=== PATIENT | female | born 1975 | race Caucasian/White ===

== ENCOUNTER 2016-12-22 09:25 | Emergency (ER) | payer OTHER ==
[~2016-12-22] VITALS: Ht 165.1 cm; Wt 100.0 kg
[~2016-12-22 09:25] MED LIST: BCPILLS PO; CITA40TA12 PO; NAPR500T3 PO; OMEP20CA9 PO; SYN50 PO
[2016-12-22 09:37] VITALS: TEMP 37.2; Ht 165.1 cm; Wt 100.0 kg
[2016-12-22] MEDS ORDERED: KETOROLAC TROMETHAMINE 30 MG/ML VIAL IV STA (10:09)
[2016-12-22] MEDS ORDERED: SODIUM CHLORIDE 0.9% 1000ML 1,000 ML IV STA ×2 (10:09→11:49)
[2016-12-22] MEDS ORDERED: ONDANSETRON INJ 2 MG/ML 2 ML VIAL IV STA (10:09)
[2016-12-22 10:19] LABS: COMPLETE YES; EOS % 2.8 %; HEMATOCRIT 41.1 % (37-47); IG% 0.4 %; LYMPH % 19.7 %; LYMPH ABS # 1.07 K/uL (1.2-3.4); MEAN CELL VOLUME 87.8 fL (80-100); MEAN CORPUSCULAR HEMOGLOBIN 31.8 pg (25-34); MEAN CORPUSCULAR HGB CONC 36.3 g/dl (32-36); MEAN PLATELET VOLUME 9.7 fL (7.4-10.4); MONO % 11.4 %; NEUT % 65.7 %; PLATELET COUNT 209 K/uL (130-400); RED BLOOD COUNT 4.68 M/uL (4.2-5.4); WHITE BLOOD COUNT 5.43 K/uL (4.8-10.8)
[2016-12-22 10:27] LABS: BUN/CREATININE RATIO 13.9 (10-20); CALCIUM 8.5 mg/dl (8.5-10.1); CREATININE 0.85 mg/dl (0.60-1.20); MAGNESIUM 1.9 mg/dl (1.8-2.4); POTASSIUM 3.5 mmol/L (3.5-5.1)
[2016-12-22 10:31] LABS: PREG INTERNAL NEGATIVE QC NEG CLEAR BACKGROUND; PREG INTERNAL POSITIVE QC POS CONTROL LINE
[2016-12-22] MEDS ORDERED: CHOL1000 PO (10:33)
[2016-12-22] MEDS ORDERED: ACET-1311 PO (10:33)
[2016-12-22] MEDS ORDERED: EFF75 PO (10:33)
[2016-12-22 10:40] LABS: URINE APPEARANCE CLOUDY (CLEAR); URINE COLOR DK YELLOW; URINE EPITHELIAL CELL AUTO >30 /lpf (0-5); URINE NITRITE NEG (NEG); URINE SPECIFIC GRAVITY 1.041 (1.000-1.030); UROBILINOGEN NEG (NEG); ZZUR CULT IF INDIC CLEAN CATCH YES
[2016-12-22 10:49] LABS: MANUAL MICROSCOPIC REQUIRED? NO; REVIEW REQ? NO; URINE BILIRUBIN 1+ (NEG)
--- NOTE | 2016-12-22 11:10 | DIAGNOSTIC IMAGING REPORT ---
ABDOMEN 2VIEW W/PA CHEST RTN CLINICAL HISTORY: Fever, chills, abdominal discomfort COMPARISON STUDY: 08/05/2015 FINDINGS: The erect chest reveals no free air. There is mild soft tissue prominence the right paratracheal/azygous region. There is no focal pulmonary consolidation. Erect and supine views the abdomen reveal no abnormally dilated loops of large or small bowel. There are no transition zones indicate bowel obstruction. There are multiple pelvic basin calcifications, which in the absence of renal colic, likely represent phleboliths. There are surgical clips within the right upper quadrant consistent with a prior cholecystectomy. IMPRESSION: No evidence of bowel obstruction. No evidence of free air. Electronically signed by: Adolfo Izquierdo M.D. 12/22/2016 11:09 AM Dictated Date/Time: 12/22/2016 11:07 AM
--- NOTE | 2016-12-22 14:32 | EMERGENCY ROOM VISIT NOTE ---
History First contact with patient: 09:50 Chief Complaint: FLU LIKE SX Stated Complaint: DAY 12 OF FLU, NAUESA, THROWING UP,COUGH History of Present Illness The patient is a 41 year old female who presents to the Emergency Room via private vehicle with complaints of "date 12 flu, nausea, throwing up, cough". The patient states that she went to [place] for vacation a few weeks ago at the [facility], and about 10 days ago no vomiting, fever and diarrhea. She states that she went to see her family doctor, which is at the [facility], who tested her for the flu and she was found to be positive. She was prescribed Tamiflu of which she had taken for 5 days. She notes that she finished this last week and also has been taking Zofran. The Zofran prescription has been depleted. She notes that she is vomiting a lot, and has difficulty completing her work day. She is becoming upset because she has a job interview that she is already canceled because the illness and hasn't rescheduled for tomorrow. She states that she had her last episode of diarrhea this morning and notes that she has about 20 episodes per day. She states that she vomits around 20 times per day. She notes mild abdominal discomfort. She has taken Tylenol today without relief of her symptoms. She states that she did have a cough but that is now better. At this time she has associated fevers , chills, nausea, vomiting, diarrhea, appetite but does not eat much, and lower abdominal cramping. She denies any headache, chest pain, shortness of breath, urinary symptoms, vaginal discharge, chance of . Review of Systems A complete 10-point Review of Systems was discussed with the patient, with pertinent positives and negatives listed in the History of Present Illness. All remaining Review of Systems questions can be considered negative unless otherwise specified. Past Medical/Surgical History Medical Problems: (1) Depression (2) GERD (gastroesophageal reflux disease) (3) Hypothyroid (4) Psoriasis (5) Tobacco use disorder Family History Patient reports no known family medical history. Social History Smoking Status: Current Every Day Smoker Marital Status: single Occupation Status: unemployed Current/Historical Medications Scheduled Control Pills ( Control Pills), 1 TAB PO DAILY Cholecalciferol (Vitamin D3), 1 TAB PO DAILY Levothyroxine Sodium (Synthroid), 50 MCG PO DAILY Omeprazole (Prilosec), 20 MG PO DAILY Ondasetron Odt (Zofran Odt), 4 MG SL Q6H Venlafaxine Hcl (Effexor), 75 MG PO DAILY Miscellaneous Medications Acetaminophen (Tylenol), 650 MG PO Allergies Coded Allergies: No Known Allergies (Unverified , 12/22/16) Physical Exam Vital Signs Date Time Temp Pulse Resp B/P Pulse Ox O2 Delivery O2 Flow Rate FiO2 12/22/16 14:53 84 18 119/94 97 Room Air 12/22/16 12:17 70 140/77 100 Room Air 12/22/16 10:26 72 20 115/84 97 Room Air 12/22/16 09:37 37.2 91 20 142/82 97 Room Air Physical Exam VITAL SIGNS - Vital signs and nursing notes were reviewed. Afebrile, normotensive, non-tachycardic and saturating well on room air 97%. GENERAL -41-year-old female appearing her stated age who is in no acute distress. The patient is nontoxic in appearance. Communicates well with provider and answers questions appropriately. SKIN - Without rashes. No breaks in the integument. No petechial rashes. HEAD - NC/AT. EYES - PERRL with EOMI bilaterally. Sclera anicteric. Palpebral conjunctiva pink and moist with no injection noted. EARS - No deformities of external structures noted on gross examination bilaterally. No pain elicited with palpation of the tragus bilaterally. External auditory canals without discharge or otorrhea. Tympanic membranes slightly erythematous without retraction or bulging. No fluid or purulent material visualized behind the TM. Handle of malleus, umbo, cone of light, pars tensa/flaccid all easily visualized. NOSE - Midline and without cyanosis. No epistaxis or purulent drainage noted. Septum midline without deviation or septal hematoma noted. MOUTH/OROPHARYNX - Without perioral cyanosis. Buccal mucosa pink and moist and without leukoplakia. Tongue midline with equal elevation of palate bilaterally. No tonsillar hypertrophy, erythema, or exudates noted. Fair dentition noted. NECK - Neck with FROM. Supple to palpation. Minimal anterior cervical lymphadenopathy noted. No nuchal rigidity. No meningismus or signs of encephalitis. LUNGS - Chest wall symmetric without accessory muscle use, intercostals retractions, or central cyanosis. Normal vesicular breath sounds CTA B/L. No wheezes, rales, or rhonchi appreciated. CARDIAC - RRR with S1/S2. No murmur, rubs, or gallops appreciated. ABDOMEN - Abdominal contour without pulsations or visible masses. BS normoactive all four quadrants. Minimal generalized abdominal tenderness to palpation in the inferior quadrants. No palpable masses, hepatosplenomegaly, or ascites noted. EXTREMITIES - No clubbing or peripheral cyanosis. No pretibial edema present. +5 /5 strength noted in UE/LE bilaterally. NEUROLOGIC - Cranial nerves II through XII grossly intact. Sensory intact to light touch throughout. PSYCH - Pt is very pleasant and interacts well with examiner. Medical Decision & Procedures ER Provider Diagnostic Interpretation: ABDOMEN 2VIEW W/PA CHEST RTN CLINICAL HISTORY: Fever, chills, abdominal discomfort COMPARISON STUDY: 08/05/2015 FINDINGS: The erect chest reveals no free air. There is mild soft tissue prominence the right paratracheal/azygous region. There is no focal pulmonary consolidation. Erect and supine views the abdomen reveal no abnormally dilated loops of large or small bowel. There are no transition zones indicate bowel obstruction. There are multiple pelvic basin calcifications, which in the absence of renal colic, likely represent phleboliths. There are surgical clips within the right upper quadrant consistent with a prior cholecystectomy. IMPRESSION: No evidence of bowel obstruction. No evidence of free air. Electronically signed by: Adolfo Izquierdo M.D. 12/22/2016 11:09 AM Dictated Date/Time: 12/22/2016 11:07 AM Laboratory Results 12/22/16 09:35 Red Blood Count 4.68, Mean Corpuscular Volume 87.8, Mean Corpuscular Hemoglobin 31.8, Mean Corpuscular Hemoglobin Concent 36.3, Mean Platelet Volume 9.7, Neutrophils (%) (Auto) 65.7, Lymphocytes (%) (Auto) 19.7, Monocytes (%) (Auto) 11.4, Eosinophils (%) (Auto) 2.8, Basophils (%) (Auto) 0.0, Neutrophils # (Auto ) 3.57, Lymphocytes # (Auto) 1.07, Monocytes # (Auto) 0.62, Eosinophils # (Auto ) 0.15, Basophils # (Auto) 0.00 12/22/16 09:35 Test 12/22/16 09:35 12/22/16 09:55 White Blood Count 5.43 K/uL (4.8-10.8) Red Blood Count 4.68 M/uL (4.2-5.4) Hemoglobin 14.9 g/dL (12.0-16.0) Hematocrit 41.1 % (37-47) Mean Corpuscular Volume 87.8 fL (80-100) Mean Corpuscular Hemoglobin 31.8 pg (25-34) Mean Corpuscular Hemoglobin Concent 36.3 g/dl (32-36) Platelet Count 209 K/uL (130-400) Mean Platelet Volume 9.7 fL (7.4-10.4) Neutrophils (%) (Auto) 65.7 % Lymphocytes (%) (Auto) 19.7 % Monocytes (%) (Auto) 11.4 % Eosinophils (%) (Auto) 2.8 % Basophils (%) (Auto) 0.0 % Neutrophils # (Auto) 3.57 K/uL (1.4-6.5) Lymphocytes # (Auto) 1.07 K/uL (1.2-3.4) Monocytes # (Auto) 0.62 K/uL (0.11-0.59) Eosinophils # (Auto) 0.15 K/uL (0-0.5) Basophils # (Auto) 0.00 K/uL (0-0.2) RDW Standard Deviation 38.6 fL (36.4-46.3) RDW Coefficient of Variation 12.1 % (11.5-14.5) Immature Granulocyte % (Auto) 0.4 % Immature Granulocyte # (Auto) 0.02 K/uL (0.00-0.02) Anion Gap 9.0 mmol/L (3-11) Est Creatinine Clear Calc Drug Dose 102.0 ml/min Estimated GFR () 98.6 Estimated GFR (Non- 85.1 BUN/Creatinine Ratio 13.9 (10-20) Calcium Level 8.5 mg/dl (8.5-10.1) Magnesium Level 1.9 mg/dl (1.8-2.4) Total Bilirubin 0.8 mg/dl (0.2-1) Aspartate Amino Transf (AST/SGOT) 46 U/L (15-37) Alanine Aminotransferase (ALT/SGPT) 139 U/L (12-78) Alkaline Phosphatase 64 U/L (45-117) Total Creatine Kinase 125 U/L (26-192) Total Protein 7.3 gm/dl (6.4-8.2) Albumin 3.6 gm/dl (3.4-5.0) Globulin 3.7 gm/dl (2.5-4.0) Albumin/Globulin Ratio 1.0 (0.9-2) Amylase Level 47 U/L (25-115) Lipase 289 U/L (73-393) Human Chorionic Gonadotropin, Qual NEG (NEG) Hepatitis C Antibody NEG (NEG) Monoscreen NEG (NEG) Urine Color DK YELLOW Urine Appearance CLOUDY (CLEAR) Urine pH 5.0 (4.5-7.5) Urine Specific Morton 1.041 (1.000-1.030) Urine Protein TRACE (NEG) Urine Glucose (UA) NEG (NEG) Urine Ketones TRACE (NEG) Urine Occult Blood NEG (NEG) Urine Nitrite NEG (NEG) Urine Bilirubin 1+ (NEG) Urine Urobilinogen NEG (NEG) Urine Leukocyte Esterase NEG (NEG) Urine WBC (Auto) 1-5 /hpf (0-5) Urine RBC (Auto) 0-4 /hpf (0-4) Urine Hyaline Casts (Auto) 5-10 /lpf (0-5) Urine Epithelial Cells (Auto) >30 /lpf (0-5) Urine Bacteria (Auto) 2+ (NEG) Medications Administered Medications (Trade) Dose Ordered Sig/Norma Route Start Time Stop Time Status Last Admin Dose Admin Sodium Chloride (Nss 1000ml) 1,000 ml @ 999 mls/hr Q1H1M STAT IV 12/22/16 10:09 12/22/16 11:09 DC 12/22/16 10:16 999 MLS/HR Ondansetron HCl (Zofran Inj) 4 mg NOW STAT IV 12/22/16 10:09 12/22/16 10:11 DC 12/22/16 10:20 4 MG Ketorolac Tromethamine 30 mg 30 mg NOW STAT IV 12/22/16 10:09 12/22/16 10:11 DC 12/22/16 10:20 30 MG Sodium Chloride (Nss 1000ml) 1,000 ml @ 200 mls/hr Q5H STAT IV 12/22/16 11:49 12/22/16 15:55 DC 12/22/16 12:16 200 MLS/HR Medical Decision Patient was seen and evaluated as above. After obtaining a thorough history and physical examination IV access was initiated and the above workup was performed. The patient is most likely experiencing post viral syndrome however I did want to obtain basic labs to rule out any other underlying emergent process. IV access was initiated and the patient was hydrated with 1 L of normal saline, and was given Zofran and Toradol for her pain and nausea. She tolerated this well and was feeling better. CBC reveals no leukocytosis or concerning anemia. CMP reveals no light abnormality, significant kidney impairment. Magnesium was within normal limits. Amylase lipase were within normal limits. test negative. There was elevation of the AST and ALTs which is an interval development from April of last year. Patient was asked if she was taking large amounts of Tylenol and denied this. She does note that she feels when she drinks that she does not recover as well. I did inquire about any potential hepatitis and she was not sure. She denied any risk factors. After verifying consent, and discussing the case with my attending I did elect to obtain a hepatitis C screen. She is informed to follow -up with her family doctor regarding the results of this test and further follow -up and management. Her urine did reveal trace ketones likely secondary to not eating much, also hyalin casts, epithelial cells and urine bacteria were present that it does not appear this time that a clear UTI is present. Culture pending. Hepatitis C antibody negative as well as Will screen negative. The patient was hydrated at a slower rate after the first liter of normal saline. She began feeling much better. A chest x-ray and abdomen series were obtained and revealed no acute process. Results were discussed with the patient. Benefits versus risk of obtaining a CT of the abdomen and pelvis were discussed with the patient, and through joint decision making the patient decided to decline the CT scan which I do believe is appropriate. She had minimal generalized abdominal tenderness. She this time appears stable for discharge, was educated upon management, is to follow-up with her family doctor or return here for worsening, had questions answered prior to discharge, was educated upon worrisome symptoms which to return and was discharged home in good condition. She was given a short-term prescription for Zofran ODT for her nausea. In the evaluation and treatment of this patient following differential diagnoses were entertained: Post viral syndrome, influenza, pneumonia, acute abdominal process, sepsis, among others. I do not suspect any emergent cause to the patient's ailment at this time. Impression Primary Impression: Post viral syndrome Additional Impressions: Elevated AST (SGOT) Elevated ALT measurement Departure Information Dispostion Home / Self-Care Condition GOOD Prescriptions Ondasetron Odt (ZOFRAN ODT) 4 Mg Tab 4 MG SL Q6H for Nausea, #6 TAB Prov: Chris Zeng PA-C 12/22/16 Referrals Eliane Hermosillo PA-C (PCP) Patient Instructions My [facility] Additional Instructions You were seen in the emergency departments for an extended flu illness, which is likely post viral syndrome. Your blood work this time does not reveal any emergent nature. Your liver enzymes were elevated, which is new compared to her previous visit in April of last year. I did order a hepatitis C screen, please follow up with your family doctor regarding this. Please follow up with your family doctor for results as well as further testing and management. Please drink plenty of fluids. You have been provided a short-term prescription for Zofran which is to help with nausea. This is one tablet under the tongue every 6 hours as needed for nausea. Please begin with a bland diet to include bananas, rice, applesauce and toast or similar foods and slowly progressed to a normal diet. Please call your family doctor later today or first thing tomorrow morning to request follow-up as soon as possible regarding today's visit. Please return to the emergency department with any new/concerning symptoms. Problem Qualifiers
[2016-12-22] MEDS ORDERED: ONDA4TAB10 SL (14:34)
[2016-12-22 14:53] VITALS: BP 119/94; PULSE 84; O2SAT 97
== END 2016-12-22 15:01 | disposition home or self-care (01) ==
LOC: C.EDB 09:26 → C.EDC 15:01
DX: G93.3 Postviral and related fatigue syndromes (principal); R94.5 Abnormal results of liver function studies; R74.8 Abnormal levels of other serum enzymes; F17.200 Nicotine dependence, unspecified, uncomplicated; F32.9 Major depressive disorder, single episode, unspecified; K21.9 Gastro-esophageal reflux disease without esophagitis; E03.9 Hypothyroidism, unspecified

== ENCOUNTER → 2017-01-23 | Outpatient (CLI) | payer OTHER ==
[~2017-01-23] MED LIST changes: +ACET-1311 PO; +CHOL1000 PO; -CITA40TA12 PO; +EFF75 PO; -NAPR500T3 PO; +ONDA4TAB10 SL
[2017-01-23 09:42] LABS: HEMATOCRIT 42.3 % (37-47); MEAN CORPUSCULAR HEMOGLOBIN 32.3 pg (25-34); MEAN CORPUSCULAR HGB CONC 35.5 g/dl (32-36); MEAN PLATELET VOLUME 9.8 fL (7.4-10.4); PLATELET COUNT 233 K/uL (130-400); RED BLOOD COUNT 4.65 M/uL (4.2-5.4)
[2017-01-23 10:16] LABS: ALT/SGPT 43 U/L (12-78); BLOOD UREA NITROGEN 13 mg/dl (7-18); BUN/CREATININE RATIO 14.8 (10-20); CALCIUM 8.6 mg/dl (8.5-10.1); CARBON DIOXIDE 29 mmol/L (21-32); CHLORIDE 105 mmol/L (98-107); CREATININE 0.87 mg/dl (0.60-1.20); GLUCOSE 93 mg/dl (70-99); POTASSIUM 3.4 mmol/L (3.5-5.1); SODIUM 139 mmol/L (136-145)
[2017-01-23 10:22] LABS: ALB/GLOB RATIO 1.1 (0.9-2); ALKALINE PHOSPHATASE 65 U/L (45-117); AST/SGOT 24 U/L (15-37); CHOLESTEROL 198 mg/dl (0-200); CHOLESTEROL/HDL RATIO 3.7; HDL CHOLESTEROL 54 mg/dl; LDL CHOLESTEROL CALCULATED 94 mg/dl; TRIGLYCERIDES 248 mg/dl (0-150); VERY LOW DENSITY LIPOPROT CALC 50 mg/dl
[2017-01-28 11:34] LABS: VIT B1 PLASMA(THIAMIN)**90353 8 nmol/L (8-30)
== END | disposition home or self-care (01) ==
LOC: C.LAB 07:18
PROVIDERS: ATTEND Physician Assistant
DX: E03.8 Other specified hypothyroidism (principal); R11.0 Nausea; R53.83 Other fatigue; E66.8 Other obesity; E55.9 Vitamin D deficiency, unspecified

== ENCOUNTER → 2017-07-25 | Outpatient (CLI) | payer OTHER ==
[~2017-07-25] MED LIST changes: -ONDA4TAB10 SL
[2017-07-25 09:36] LABS: HEMATOCRIT 42.3 % (37-47); MEAN CELL VOLUME 89.1 fL (80-100); MEAN CORPUSCULAR HEMOGLOBIN 30.9 pg (25-34); MEAN CORPUSCULAR HGB CONC 34.8 g/dl (32-36); MEAN PLATELET VOLUME 9.8 fL (7.4-10.4); PLATELET COUNT 222 K/uL (130-400); RED BLOOD COUNT 4.75 M/uL (4.2-5.4); WHITE BLOOD COUNT 6.13 K/uL (4.8-10.8)
[2017-07-25 10:03] LABS: AST/SGOT 21 U/L (15-37); BLOOD UREA NITROGEN 12 mg/dl (7-18); BUN/CREATININE RATIO 14.8 (10-20); CARBON DIOXIDE 27 mmol/L (21-32); CHLORIDE 104 mmol/L (98-107); CHOLESTEROL 211 mg/dl (0-200); CREATININE 0.82 mg/dl (0.60-1.20); GLUCOSE 99 mg/dl (70-99); POTASSIUM 3.7 mmol/L (3.5-5.1); SODIUM 139 mmol/L (136-145)
[2017-07-25 10:11] LABS: ALKALINE PHOSPHATASE 58 U/L (45-117); ALT/SGPT 42 U/L (12-78); HDL CHOLESTEROL 53 mg/dl; LDL CHOLESTEROL CALCULATED 114 mg/dl; TRIGLYCERIDES 218 mg/dl (0-150); VERY LOW DENSITY LIPOPROT CALC 44 mg/dl
[2017-07-25 10:29] LABS: LYME DISEASE AB IGG NEG (NEG); LYME DISEASE AB IGM NEG (NEG)
[2017-07-29 12:32] LABS: VIT B1 PLASMA(THIAMIN)**90353 22 nmol/L (8-30)
== END | disposition home or self-care (01) ==
LOC: C.LAB 07:37
PROVIDERS: ATTEND Physician Assistant
DX: R53.83 Other fatigue (principal); E03.8 Other specified hypothyroidism